=== PATIENT | female | born 1945 | race Caucasian/White ===

== ENCOUNTER → 2023-10-30 15:52 | Outpatient (REF) | payer OTHER, SELFPAY | LOC: HWRAD 15:52 | PROVIDERS: ATTENDING PHYSICIAN Family Medicine | DX: R07.9 Chest pain, unspecified (principal) | CPT/HCPCS: 71046 ==

== ENCOUNTER 2024-01-12 06:21 | Day surgery (SDC) | payer OTHER, SELFPAY ==
[2024-01-03 10:57] VITALS: BMI 22.4
[2024-01-03 11:40] LABS: Hematocrit 44.9 % (37.0-47.0); Hemoglobin 14.8 g/dL (12.0-16.0); Mean Corpuscular Volume 97.2 fL (81.0-99.0); Platelet Count 306 10^3/uL (130-400); Red Blood Cell Count 4.62 10^6/uL (4.20-5.40); Red Cell Dist. Width 13.5 % (11.5-14.5); White Blood Cell Count 6.4 10^3/uL (4.8-10.8)
[2024-01-03 15:25] LABS: Blood Urea Nitrogen 16 mg/dl (7-17); Calcium 9.6 mg/dl (8.4-10.2); Carbon Dioxide 28 mmol/L (22-30); Chloride 98 mmol/L (98-107); Estimated Creatinine Clearance 48 ml/min; Glucose 107 mg/dl (70-99); Potassium 4.4 mmol/L (3.5-5.1); Sodium 136 mmol/L (135-145); eGFR > 60.00
[2024-01-12] VITALS (11 sets, daily range): BP systolic 90–118; BP diastolic 52–73; BMI 22.4
--- NOTE | 2024-01-12 08:33 | W.SUR.PREOP ---
Pre-Operative Surgical Note
-
I have examined this patient prior to the performance of the scheduled procedure.
The patient's condition is unchanged from the time of the current History and
Physical and the patient is able to undergo the scheduled procedure.
[2024-01-12] MEDS: TYLENOL PO ×2 (11:14)
[2024-01-12] MEDS: TYLENOL 500 MG PO (11:25)
--- NOTE | 2024-01-12 13:24 | W.IMMPOSTOP ---
Addendum entered and electronically signed by Kvng Hoskins MD 01/12/24 13:38:
[id number]
Original Note:
Surgical Immed Post Op Note
-
Primary Surgeon: Aidee
Assisting Surgeon: Margo Ozuna PA-c
Pre-op Diagnosis: Left inguinal hernia
Post-op Diagnosis: Left inguinal hernia, indirect and femoral component
Procedure Performed: Laparoscopic TEP repair left inguinal hernia with mesh
Anesthesia Type: GETA +0.25% Marcaine
Specimen / Cultures: None
Estimated Blood Loss: 4 mL
Complications: None immediate
Operative Findings: Left indirect inguinal hernia and smaller femoral hernia component. Total extraperitoneal repair. 3D max large mid weight mesh, no tacks/securing. No peritoneal entry with dissection. Diagnostic laparoscopy at conclusion of
procedure confirming good mesh positioning, complete peritoneal occlusion surrounding mesh. Previous right inguinal herniorrhaphy mesh in place and well incorporated. No adhesions. Right lateral abdominal wall carefully inspected and no evidence
of incisional hernia. Right flank swelling is likely due to muscle eventration/weakness.
The assistance of Margo Ozuna PA-C was required due to the complexity of the procedure. During the procedure Margo Ozuna PA-C assisted with laparoscopic camera management, and closure of the surgical incision sites. I was present for the entirety
of the operative procedure.
Patient's friend Lauryn updated postoperatively via phone call
[2024-01-12] MEDS: ZOFRAN 4 MG IV (14:10)
--- NOTE | 2024-01-12 14:27 | SUR.PHASEI ---
patient received sedate, floppy head , awake at 4 - answers quietly, no c/o. attempt to wean O2 - needed to change to nasal cannula. at 1410 - c/o nausea and dizzy. Zofran 4mg given IV. Sleeping now. When awake harsh nonproductive cough.
== END 2024-01-12 15:50 | disposition home or self-care (01) ==
LOC: SDS 06:21
PROVIDERS: ATTENDING PHYSICIAN Surgery; FAMILY PHYSICIAN Family Medicine; OTHER PHYSICIAN Internal Medicine Interventional Cardiology
DX: K40.90 Unilateral inguinal hernia, without obstruction or gangrene, not specified as recurrent (principal); K41.90 Unilateral femoral hernia, without obstruction or gangrene, not specified as recurrent
CPT/HCPCS: 49650; 36415; 80048; 85027; 93005; C1776; C1781

== ENCOUNTER 2024-08-26 15:29 | Emergency (ER) | payer OTHER, SELFPAY ==
[2024-08-26 15:32] VITALS: BP 130/79
--- NOTE | 2024-08-26 16:30 | ED.MUSCINJ ---
HPI-Injury
General
Chief Complaint: Fall
Time Seen by Provider: 08/26/24 16:24
History of Present Illness-Injury
Initial Injury comments:
Patient had a fall 1 week ago of 3 stairs. She landed on her right side. Endorsed hitting her head but no loss of consciousness. Complains of right-sided rib pain. No nausea vomiting. No issues urinating. No lightheadedness.
Past History
Past History
ED Past Medical History: Asthma, CAD, COPD, Hypercholesterolemia, Hypothyroidism and Other (back pain)
ED Past Surgical History: Cardiac and Cholecystectomy
Social History
Tobacco: Smoker
Alcohol: None
Living: with family
Employment: Retired
Family History
Family History: Other (Noncontributory)
Phy Exam
Physical Exam
Physical Exam:
GENERAL APPEARANCE: NAD, well developed/ well nourished
EYES lids/conjunctiva normal
EARS/NOSE/THROAT Mucous membranes moist, uvula midline without oral pharyngeal erythema, exudate or swelling
HEAD/NECK normocephalic atraumatic, neck is supple.
RESPIRATORY respiratory effort normal, speaks in full sentences, no accessory muscle use. Lungs clear to auscultation without rhonchi, wheezes, rales
CARDIAC Regular rate and rhythm, no edema.
ABDOMINAL Soft, ND/NT. No pulsatile masses on exam, rebound tenderness, Gibbs sign or pain over Mcburney's point.
BACK there is some tenderness to the right posterior ribs. There is no crepitus.
MUSCLES/EXTREMITIES No abnormal range of motion, no swelling.
SKIN Warm, pink and dry. No rashes
NEUROLOGICAL Speech is clear and appropriate. Normal level of consciousness. 5/5 strength in all extremities.
PSYCH Normal mood and affect. Judgement/competence is appropriate
Injury Course
Orders/Labs/Results
Orders:
Orders
08/26/24 16:29
CR Ribs-right 3 Vw W/pa Chest* Urgent
Comment:
Reason For Exam: fall of stairs, rib pain
08/26/24 17:45
Urinalysis Urgent
Date Specimen was Collected: 08/26/24
Time Specimen was Collected: 17:28
*Pulse Oximetry
SaO2: 96
Oxygen Mode of Delivery: Room air
Patient hypoxic: no
*Critical Care Note
Total Time (30-74mins, 75-104mins- exclusive of procedures): Not Applicable
ED Attending Note
ED Attending Note
ED Attending Note:
Patient presents with right-sided rib pain after a fall 1 week ago. She is well-appearing, saturating well on room air. There is no crepitus or significant signs of trauma on exam. She did strike her head but is not on blood thinners, has no
evidence of head injury and is neurologically intact. Do not feel CT imaging is warranted at this time. I reviewed chest x-ray there is not appear to be any pneumothorax or obvious broken ribs. Patient ultimately left the department prior to
final read on x-ray.
-
Portions of this chart may have been created with voice recognition software.� Occasional wrong word or��sound alike� substitutions may have occurred due to the inherent limitations of voice recognition software.
Discharge Plan
Departure
Patient Disposition: Home (Routine Discharge)
Date of Disposition: 08/26/24
Time of Disposition: 18:49
Patient with high blood pressure during this ER visit?: No
Discharge Problem:
Rib injury
Instructions: Rib fracture or bruised rib - ED discharge instructions
Prescriptions:
No Action
gabapentin 100 MG capsule
100 mg PO HS
albuterol sulfate [Proventil HFA] 90 MCG/PUFF HFA aerosol inhaler
2 puff inhalation BID
ascorbic acid (vitamin C) [Vitamin C] 1,000 MG tablet
2,000 mg PO DAILY
cod liver oil 1 CAP capsule
1 cap PO DAILY
Potassium Gluconate
4 tab PO DAILY
Probiotic
1 tab PO DAILY
Vitamin D3 (cholecalciferol):
3 tab PO DAILY
Vitamin E :
1 tab PO DAILY
fluconazole 100 mg Tablet
300 mg PO WEEKLY
fluticasone propionate 50 mcg/actuation [place],Suspension
2 spray INTRANASAL DAILY
atorvastatin [Lipitor] 10 mg Tablet
5 mg PO QPM
lysine 1,000 mg Tablet
2,000 mg PO DAILY
calcium carbonate [Calcium 600] 600 mg calcium (1,500 mg) Tablet
600 mg PO QPM
biotin 1,000 mcg Tablet,Chewable
1,000 mcg PO QPM
Intestinal Movement Formula
1 dose PO DAILY
aspirin 81 mg tablet,chewable
81 mg PO QPM
coenzyme Q10 [Co Q-10] 100 mg Capsule
100 mg PO QPM
Daily Fiber
10 mg PO DAILY
Pepcid
20 mg PO BID PRN (Reason: GI Upset)
acetaminophen [Tylenol Extra Strength] 500 mg tablet
1,000 mg PO Q6HPRN PRN (Reason: mild pain) Qty: 1 0RF
polyethylene glycol 3350 [Miralax] 17 gram/dose powder
4 g PO DAILY PRN (Reason: Constipation) Qty: 119 0RF
Rx Instructions:
start a laxative such as MIRALAX on day 2 after surgery if no bowel movement yet as long as no nausea/vomiting and passing gas
Referrals:
Noel Chapa DO [Family Provider, Family Practice]
Interventions
Interventions:
*Risk Screen - Suicide Last Done: 08/26/24 15:32
*General Assessment Last Done: 08/26/24 15:32
*Neglect/Abuse Screening Last Done: 08/26/24 15:32
*Nursing Disposition Last Done: 08/26/24 19:20
ED-Musculoskeletal Assessment Last Done: 08/26/24 18:28
ED- Neurological Assessment Last Done: 08/26/24 16:53
ED-Skin Assessment Last Done: 08/26/24 18:28
Discharge Date and Time
Discharge Date/Time: 08/26/24 19:00
Print Language: HEBREW
[2024-08-26 17:54] LABS: Urine Character Clear (Clear)
[2024-08-26 18:26] VITALS: BP 117/77
== END 2024-08-26 19:00 | disposition home or self-care (01) ==
LOC: EMR 15:29
PROVIDERS: EMERGENCY PHYSICIAN Emergency Medicine; FAMILY PHYSICIAN Family Medicine
DX: S29.9XXA Unspecified injury of thorax, initial encounter (principal); S09.90XA Unspecified injury of head, initial encounter; R07.81 Pleurodynia; W10.9XXA Fall (on) (from) unspecified stairs and steps, initial encounter; I25.10 Atherosclerotic heart disease of native coronary artery without angina pectoris; E78.00 Pure hypercholesterolemia, unspecified; E03.9 Hypothyroidism, unspecified; J44.89 Other specified chronic obstructive pulmonary disease; F17.200 Nicotine dependence, unspecified, uncomplicated; Z79.82 Long term (current) use of aspirin; Z90.49 Acquired absence of other specified parts of digestive tract; Z88.6 Allergy status to analgesic agent; Z88.1 Allergy status to other antibiotic agents; Z88.5 Allergy status to narcotic agent; Z88.8 Allergy status to other drugs, medicaments and biological substances; Z91.048 Other nonmedicinal substance allergy status
CPT/HCPCS: 99283; 71101; 81003

== ENCOUNTER → 2024-11-26 13:56 | Outpatient (REF) | payer OTHER, SELFPAY | LOC: MRI 3T 13:56 | PROVIDERS: ATTENDING PHYSICIAN Physician Assistant Surgical; FAMILY PHYSICIAN Family Medicine | DX: M54.16 Radiculopathy, lumbar region (principal) | CPT/HCPCS: 72148 ==